=== PATIENT | female | born 2000 | race Caucasian/White ===

== ENCOUNTER 2020-07-09 18:53 | Emergency (ER) | payer OTHER ==
[~2020-07-09] VITALS: Ht 157.5 cm; Wt 52.3 kg
[2020-07-09 19:22] LABS: COLLECTION METHOD CLEAN CATCH
[2020-07-09 19:27] LABS: MUCOUS Present /lpf; PH 7 (5-8); SQUAMOUS EPITHELIAL None Seen /hpf; URINE APPEARANCE Clear; URINE BACTERIA None Seen /hpf; URINE BILIRUBIN Negative (NEGATIVE); URINE BLOOD Negative (NEGATIVE); URINE COLOR Yellow; URINE GLUCOSE Negative (NEGATIVE); URINE KETONE 1+ (NEGATIVE); URINE LEUKOCYTE ESTERASE Negative (NEGATIVE); URINE NITRATE Negative (NEGATIVE); URINE PROTEIN(semi-quant) Negative (NEGATIVE); URINE RBC 0-2 /hpf; URINE UROBILINOGEN Negative (NEGATIVE)
[2020-07-09 19:35] LABS: BASO # 0.1 (0.0-0.2); BASO % 0.4 % (0.0-2.0); EOS # 0.1 (0.0-0.7); EOS % 0.4 % (0-4.0); GRAN # 8.2 (1.4-6.5); GRAN % 69.9 % (42.2-75.2); HEMATOCRIT 43.5 % (37.0-47.0); HEMOGLOBIN 14.9 g/dl (12.5-16.0); LYMPH # 2.7 (1.2-3.4); LYMPH % 22.6 % (20.0-51.0); MEAN CELL VOLUME 85 fl (80.0-100.0); MEAN CORPUSCULAR HEMOGLOBIN 29 pg (27.0-31.0); MEAN CORPUSCULAR HGB CONC 34 g/dl (33.0-37.0); MEAN PLATELET VOLUME 8.8 fl (7.4-10.4); MONO # 0.8 (0.1-0.6); MONO % 6.4 % (1.7-9.3); PLATELET COUNT 422 K/mm3 (130-400); RED BLOOD COUNT 5.12 M/mm3 (4.10-5.30); REDCELL DISTRIBUTION WIDTH-CV 11.9 % (11.5-14.5)
[2020-07-09 19:39] LABS: TRICYCLIC ANTIDEPRESS URINE NEGATIVE
[2020-07-09 19:47] LABS: ACETAMINOPHEN < 10 ug/mL (10-30); ALANINE AMINOTRANSFERASE 14 U/L (4-34); ALBUMIN 5.3 gm/dL (3.5-5.0); ALCOHOL(ethanol),MEDICAL < 10 mg/dL; ALKALINE PHOSPHATASE 67 U/L (50-136); ANION GAP 15 mmol/L (7-16); AST,SGOT 29 U/L (15-37); BILIRUBIN,TOTAL 0.6 mg/dL (0.0-1.0); BLOOD UREA NITROGEN 6 mg/dL (7-17); CALCIUM 10.2 mg/dL (8.4-10.2); CARBON DIOXIDE 22 mmol/L (22-30); CHLORIDE 103 mmol/L (98-107); CREATININE, serum 0.62 (0.52-1.25); GLUCOSE 103 mg/dL (74-106); POTASSIUM 3.4 mmol/L (3.4-5.0); SALICYLATE < 1.0 mg/dL; SODIUM 139 mmol/L (137-145); TOTAL PROTEIN 9.5 gm/dL (6.4-8.2)
[2020-07-10] MEDS ORDERED: LAMICTAL150 MG (06:33)
[2020-07-10] MEDS ORDERED: SEROQUEL50 MG PO (06:33)
[2020-07-10 18:27] VITALS: BP 126/79; PULSE 122; TEMP 98
== END 2020-07-10 18:27 ==
LOC: COL.ER 18:53
PROVIDERS: Emergency Medicine
DX: F31.9 Bipolar disorder, unspecified (principal); Z20.822 Contact with and (suspected) exposure to COVID-19; Z32.02 Encounter for pregnancy test, result negative